=== PATIENT | male | born 1945 | race Caucasian/White ===

== ENCOUNTER 2021-12-03 10:00 | Inpatient (IN) | payer MEDICARE ==
[2021-12-04] MEDS ORDERED: Lidocaine 0.5%/Epinephrine 1:200,000 50 ml Vial ONE (06:10)
[2021-12-04] MEDS ORDERED: Thrombin 5000 UNITS/5 ML VIAL ONE (06:11)
[2021-12-04] MEDS ORDERED: Bacitracin Zinc Ointment 30 gm TUBE ONE (06:11)
[2021-12-04] MEDS ORDERED: Neomycin-Polymyxin 1 ML AMP ONE (06:11)
[2021-12-04] MEDS ORDERED: Fentanyl 250 MCG/5 ML VIAL ONE ×2 (06:15→13:44)
[2021-12-04] MEDS ORDERED: Lidocaine 2 gm/D5W 500 ml 0 ML ONE (06:15)
[2021-12-04] MEDS ORDERED: Lidocaine 2% Jelly 5 ML TUBE ONE (07:12)
[2021-12-04] MEDS ORDERED: Phenylephrine 10 MG/ML VIAL ONE (07:12)
[2021-12-04] MEDS ORDERED: ePHEDrine 50 MG/ML VIAL ONE (07:18)
[2021-12-04] MEDS ORDERED: Ondansetron PF 4 MG/2 ML Vial ONE ×2 (07:18)
[2021-12-04] MEDS ORDERED: PROPOFOL 200 MG/20 ML VIAL ONE (07:18)
[2021-12-04] MEDS ORDERED: Glycopyrrolate 0.2 MG/ML 5 ML SYRINGE ONE (07:18)
[2021-12-04] MEDS ORDERED: Rocuronium Bromide 10 MG/ML (10ML VIAL) ONE (07:18)
[2021-12-04] MEDS ORDERED: Vecuronium 10 MG VIAL ONE (07:18)
[2021-12-04] MEDS ORDERED: Dexamethasone 20 MG/5 ML VIAL ONE (07:18)
[2021-12-04] MEDS ORDERED: Lidocaine 1% PF 5 ML VIAL ONE (07:18)
[2021-12-04] MEDS ORDERED: Albumin 5% 500 ML ONE (08:26)
[2021-12-04] MEDS ORDERED: levETIRAcetam 500 MG/100 ML PREMIX BAG ONE (08:26)
[2021-12-04] MEDS ORDERED: ePHEDrine Sulfate 50 MG/10 ML VIAL ONE (09:45)
[2021-12-04] MEDS ORDERED: Promethazine HCl 25 MG/ML VIAL IVPB PRN (12:29)
[2021-12-04] MEDS ORDERED: Ondansetron HCl/PF 4 MG/2 ML Vial IVP PRN (12:29)
[2021-12-04] MEDS ORDERED: Promethazine HCl 25 MG/ML VIAL IM PRN ×2 (12:29→13:11)
[2021-12-04] MEDS ORDERED: Ondansetron PF 4 MG/2 ML Vial IVP PRN (13:11)
[2021-12-04] MEDS ORDERED: Promethazine HCl 12.5 MG SUPP PR PRN (13:11)
[2021-12-04] MEDS ORDERED: Promethazine 25 MG TAB PO PRN (13:11)
[2021-12-04] MEDS ORDERED: Labetalol HCl 100 MG/20 ML VIAL ONE (13:32)
[2021-12-04] MEDS: Labetalol HCl 100 MG/20 ML VIAL SLOW IVP PRN (14:19)
[2021-12-04 14:44] VITALS: BMI 25.2
[2021-12-04] MEDS ORDERED: FLU VACC QS2021-22(65YR UP)/PF 240 MCG/0.7 ML SYRINGE IM ONE (15:15)
[2021-12-04] MEDS: Sodium Chloride 0.9% 1,000 ML IV SCH (15:15)
[2021-12-04] MEDS: niCARdipine 25 MG in Sodium Chloride 0.9% 250 ML 250 ML IVPB SCH (15:47)
[2021-12-04] MEDS: Morphine 4 MG/ML VIAL SLOW IVP PRN ×3 (16:24→22:33)
[2021-12-04] MEDS: Gabapentin 300 MG CAP PO SCH ×2 (17:05→20:58)
[2021-12-04] MEDS: CEFAZOLIN 2 GM, Admixture Fee 1 EACH in Sodium Chloride 0.9% 100 ML IVPB SCH ×2 (17:24→23:13)
[2021-12-04] MEDS: Dexamethasone 4 MG TAB PO SCH (18:48)
[2021-12-04] MEDS: levETIRAcetam 500 MG TAB PO SCH (20:51)
[2021-12-04] MEDS: Doxazosin Mesylate 4 MG TAB PO SCH (20:56)
[2021-12-04] MEDS: Rosuvastatin 20 MG TAB PO SCH (20:59)
[2021-12-04] MEDS: DorzolamidE/Timolol 2%/0.5% Ophth Soln 10 ml Bottle EA EYE SCH (20:59)
[2021-12-05] MEDS: Dexamethasone 4 MG TAB PO SCH ×5 (00:03→23:15)
[2021-12-05] MEDS: Labetalol HCl 100 MG/20 ML VIAL SLOW IVP PRN (00:26)
[2021-12-05] MEDS: niCARdipine 25 MG in Sodium Chloride 0.9% 250 ML 250 ML IVPB SCH (01:46)
[2021-12-05] MEDS: Sodium Chloride 0.9% 1,000 ML IV SCH ×2 (02:38→17:40)
[2021-12-05] MEDS: Levothyroxine Sodium 88 MCG TAB PO SCH (05:35)
[2021-12-05] MEDS: CEFAZOLIN 2 GM, Admixture Fee 1 EACH in Sodium Chloride 0.9% 100 ML IVPB SCH (05:35)
[2021-12-05] MEDS: Morphine 4 MG/ML VIAL SLOW IVP PRN ×4 (08:24→18:30)
[2021-12-05] MEDS: levETIRAcetam 500 MG TAB PO SCH ×2 (08:25→20:46)
[2021-12-05] MEDS: Gabapentin 300 MG CAP PO SCH ×3 (08:25→20:46)
[2021-12-05] MEDS: DorzolamidE/Timolol 2%/0.5% Ophth Soln 10 ml Bottle EA EYE SCH ×2 (10:41→20:47)
[2021-12-05] MEDS: Rosuvastatin 20 MG TAB PO SCH (20:46)
[2021-12-05] MEDS: Doxazosin Mesylate 4 MG TAB PO SCH (20:47)
[2021-12-06] MEDS: Morphine 4 MG/ML VIAL SLOW IVP PRN ×7 (03:26→20:18)
[2021-12-06] MEDS: Sodium Chloride 0.9% 1,000 ML IV SCH ×2 (04:23→17:48)
[2021-12-06] MEDS: Dexamethasone 4 MG TAB PO SCH (05:47)
[2021-12-06] MEDS: Levothyroxine Sodium 88 MCG TAB PO SCH (05:48)
[2021-12-06] MEDS ORDERED: traMADol HCl 50 MG TAB PO PRN (07:35)
[2021-12-06] MEDS: DorzolamidE/Timolol 2%/0.5% Ophth Soln 10 ml Bottle EA EYE SCH ×2 (08:42→21:30)
[2021-12-06] MEDS: levETIRAcetam 500 MG TAB PO SCH ×2 (08:42→20:18)
[2021-12-06] MEDS: Gabapentin 300 MG CAP PO SCH ×3 (08:42→20:18)
[2021-12-06] MEDS: Labetalol HCl 100 MG/20 ML VIAL SLOW IVP PRN ×4 (08:47→20:19)
[2021-12-06] MEDS ORDERED: Dexamethasone 1 MG TAB PO SCH (18:00)
[2021-12-06] MEDS: Rosuvastatin 20 MG TAB PO SCH (20:18)
[2021-12-06] MEDS: Doxazosin Mesylate 4 MG TAB PO SCH (21:28)
[2021-12-06] MEDS ORDERED: HYDROcodone/Acetaminophen 10/325 mg Tablet PO SCH (22:30)
[2021-12-07] MEDS ORDERED: HYDROcodone/Acetaminophen 10/325 mg Tablet PO SCH (02:45)
[2021-12-07] MEDS: Morphine 4 MG/ML VIAL SLOW IVP PRN ×10 (02:49→22:25)
[2021-12-07] MEDS: Levothyroxine Sodium 88 MCG TAB PO SCH (04:33)
[2021-12-07] MEDS: Labetalol HCl 100 MG/20 ML VIAL SLOW IVP PRN ×3 (06:14→20:27)
[2021-12-07] MEDS: Sodium Chloride 0.9% 1,000 ML IV SCH ×2 (08:15→22:58)
[2021-12-07] MEDS: levETIRAcetam 500 MG TAB PO SCH ×2 (08:29→20:25)
[2021-12-07] MEDS: Gabapentin 300 MG CAP PO SCH ×3 (08:29→20:25)
[2021-12-07] MEDS: DorzolamidE/Timolol 2%/0.5% Ophth Soln 10 ml Bottle EA EYE SCH ×2 (08:32→20:26)
[2021-12-07] MEDS ORDERED: chlorproMAZINE HCl 25 MG TAB PO PRN (09:49)
[2021-12-07] MEDS ORDERED: Lidocaine 2% MPF 10 ML AMP (For Epidural Use) ONE (11:41)
[2021-12-07] MEDS ORDERED: Bupivacaine 0.25% 10 ML VIAL ONE (11:41)
[2021-12-07] MEDS ORDERED: Iopamidol-M 300 61% 15 ML VIAL ONE (11:41)
[2021-12-07] MEDS ORDERED: Dexamethasone 10 MG/ML VIAL ONE (11:41)
[2021-12-07] MEDS ORDERED: Dexamethasone 4 mg/ml Vial ONE (11:41)
[2021-12-07] MEDS ORDERED: chlorproMAZINE HCl 50 MG/2 ML AMP IM PRN (12:07)
[2021-12-07] MEDS: Rosuvastatin 20 MG TAB PO SCH (20:25)
[2021-12-07] MEDS: Doxazosin Mesylate 4 MG TAB PO SCH (20:26)
[2021-12-08] MEDS: Labetalol HCl 100 MG/20 ML VIAL SLOW IVP PRN ×2 (00:20→04:26)
[2021-12-08] MEDS: Morphine 4 MG/ML VIAL SLOW IVP PRN ×5 (00:20→09:23)
[2021-12-08] MEDS: Levothyroxine Sodium 88 MCG TAB PO SCH (06:06)
[2021-12-08] MEDS: levETIRAcetam 500 MG TAB PO SCH (09:14)
[2021-12-08] MEDS: Gabapentin 300 MG CAP PO SCH (09:14)
[2021-12-08] MEDS: DorzolamidE/Timolol 2%/0.5% Ophth Soln 10 ml Bottle EA EYE SCH (09:16)
[2021-12-08] MEDS ORDERED: HYDROcodone/Acetaminophen 10/325 mg Tablet PO PRN (09:50)
[2021-12-08] MEDS ORDERED: Acetaminophen/Codeine 30-300mg Tablet PO PRN (09:50)
[2021-12-08] MEDS ORDERED: tiZANidine HCl 4 MG TAB PO PRN (09:50)
[2021-12-08] MEDS: Sodium Chloride 0.9% 1,000 ML IV SCH (10:59)
[2021-12-08 13:18] VITALS: BP 132/81; TEMP 97.2
[2021-12-08] MEDS ORDERED: Gabapentin 300 MG CAP PO SCH ×2 (15:00→21:00)
[2021-12-08] MEDS ORDERED: Dexamethasone 1 MG TAB PO SCH (18:00)
[2021-12-10] MEDS ORDERED: Dexamethasone 1 MG TAB PO SCH (18:00)
== END 2021-12-08 13:00 | disposition home health service (06) | DRG 27 ==
LOC: SURG A 12-04 05:46 → CCU 12-04 14:24 → SURG A 12-05 13:35
PROVIDERS: ADMIT Neurological Surgery; ATTEND Neurological Surgery
PROC: 00B70ZZ Excision of Cerebral Hemisphere, Open Approach (ICD-10-PCS; principal; 2021-12-04)
PROC: 3E0S33Z Introduction of Anti-inflammatory into Epidural Space, Percutaneous Approach (ICD-10-PCS; 2021-12-07)
DX: C79.31 Secondary malignant neoplasm of brain (principal); Z20.822 Contact with and (suspected) exposure to COVID-19; C30.0 Malignant neoplasm of nasal cavity; D69.6 Thrombocytopenia, unspecified; N40.0 Benign prostatic hyperplasia without lower urinary tract symptoms; E03.9 Hypothyroidism, unspecified; Z79.51 Long term (current) use of inhaled steroids; Z79.899 Other long term (current) drug therapy; Z79.890 Hormone replacement therapy; Z88.8 Allergy status to other drugs, medicaments and biological substances
CPT/HCPCS: 88307; 88331; 88341; 88342; C1713; C1769; J0690; J1100; J1953; J2001; J2270; J2370; J2405; J2704; J3010; J3230; J3490; J7050; J8540; P9045; Q9967; S0020

== ENCOUNTER 2021-12-03 11:02 | Outpatient (CLI) | payer MEDICARE ==
[2021-12-03 13:03] LABS: Hemoglobin 12.5 g/dL (13.5-17.5); Mean Corpuscular HGB CONC 32.1 g/dL (32.0-36.0); Mean Corpuscular Hemoglobin 30.3 pg (27.0-33.0); Mean Corpuscular Volume 94.2 fl (81.2-95.1); Platelet Count 125 10x3/uL (150-450); RBC Distribution Width 12.6 % (11.5-14.5); Red Blood Cell (RBC) Count 4.13 10x6/uL (4.32-5.72); White Blood Cell (WBC) Count 5.2 10x3/uL (3.5-10.5)
[2021-12-03 13:05] LABS: INR-International Normal Ratio 0.9; PTT 22.1 sec (22.0-33.0); Prothrombin Time 10.5 sec (9.5-12.1)
[2021-12-03 20:33] LABS: SARS-CoV-2 PCR by NAA Not Detected (NotDetected)
== END 2021-12-03 11:03 | disposition home or self-care (01) ==
LOC: LABBT 11:02
PROVIDERS: ATTEND Neurological Surgery
DX: Z01.812 Encounter for preprocedural laboratory examination (principal); Z20.822 Contact with and (suspected) exposure to COVID-19
CPT/HCPCS: 85027; 85610; 85730; U0003; U0005

== ENCOUNTER 2021-12-03 12:09 | Outpatient (CLI) | payer MEDICARE | END 2021-12-03 12:10 | disposition home or self-care (01) | LOC: MRI 12:09 → SCSMRI 12:10 | PROVIDERS: ATTEND Neurological Surgery | DX: D49.6 Neoplasm of unspecified behavior of brain (principal); G93.6 Cerebral edema | CPT/HCPCS: 70553; 82565 ==